=== PATIENT | male | born 1980 | race Caucasian/White ===

== ENCOUNTER 2019-12-18 22:38 | Emergency (ER) | payer OTHER ==
--- NOTE | 2019-12-18 23:06 | ERPHSYRPT ---
- History of Present Illness Time Seen by Provider: 12/18/19 23:06 Source: patient Exam Limitations: no limitations Patient Subjective Stated Complaint: pt has swelling to left jaw/side of face due to tooth abscess. Triage Nursing Assessment: pt has swelling to left jaw/side of face due to tooth abscess, which started last night at work. Swelling and pain has gotten worse today. 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 Physician History: The patient is a 39-year-old male with a past medical history significant for poor dentition in addition to cigarette smoking presents with a chief complaint of a toothache and left-sided facial swelling. He started to notice his lower left third molar was hurting yesterday and awoke this morning and noticed that the left side of his face appeared to be swollen, specifically adjacent to the left side of his mandible. As the day progressed the pain got worse and the swelling got worse to the point where he decided to have his bring him to the emergency department for further evaluation and management. He denies headache, changes in visual acuity, diplopia, difficulty swallowing, fever, chills, and tasting or feeling any purulent drainage coming from the gumline of the affected tooth. He states he has had periods of dental pain associated with the same tooth over the years but by the time he can schedule to be seen by dentist the pain goes away and he does not follow-up. He has not taken anything for pain prior to arrival to the emergency department and is unable to follow-up with a dentist at this time prompting him to come to the emergency department for further evaluation and management. The pain is described as a throbbing pain, nonradiating constant and is severe. Timing/Duration: yesterday Severity: severe Associated Symptoms: No nausea, No vomiting, No abdominal pain, No shortness of breath, No chest pain, No syncope Allergies/Adverse Reactions: codeine Adverse Reaction (Intermediate, Verified 12/18/19 22:57) Rash Hx Tetanus, Diphtheria Vaccination/Date Given: Yes Hx Influenza Vaccination/Date Given: No Hx Pneumococcal Vaccination/Date Given: No Immunizations Up to Date: Yes Travel Risk - International Travel Have you traveled outside of the country in past 3 weeks: No - Coronavirus Screening Are you exhibiting any of the following symptoms?: No Close contact with a COVID-19 positive Pt in past 14-21 Days: No - Review of Systems Constitutional: No Fever, No Chills Eyes: No Symptoms Ears, Nose, & Throat: Other (Toothache and facial swelling), No Throat Pain Respiratory: No No Symptoms, No Cough, No Cyanosis, No Dyspnea Cardiac: No Symptoms Abdominal/Gastrointestinal: No Symptoms Skin: No Symptoms Neurological: No Symptoms Psychological: No Symptoms Endocrine: No Symptoms - Past Medical History Pertinent Past Medical History: Yes ENT History: No Pertinent History Cardiac History: No Pertinent History Endocrine Medical History: No Pertinent History Musculoskeletal History: No Pertinent History GI Medical History: Other History: No Pertinent History Male Reproductive Disorders: No Pertinent History - Past Surgical History Past Surgical History: Yes Neuro Surgical History: No Pertinent History Cardiac: No Pertinent History Respiratory: No Pertinent History Gastrointestinal: Appendectomy Genitourinary: No Pertinent History Musculoskeletal: No Pertinent History Male Surgical History: No Pertinent History - Social History Smoking Status: Current every day smoker How long have you smoked: 20 yrs Exposure to second hand smoke: Yes Drug Use: none Patient Lives Alone: No - Nursing Vital Signs Nursing Vital Signs: Initial Vital Signs Temperature 98.1 F 12/18/19 22:49 Pulse Rate 87 12/18/19 22:49 Respiratory Rate 18 12/18/19 22:49 Blood Pressure 156/101 12/18/19 22:49 O2 Sat by Pulse Oximetry 99 12/18/19 22:49 Pain Scale Pain Intensity 8 - Physical Exam General Appearance: mild distress, other (Guarding the left side of his face with his left hand) Eye Exam: PERRL/EOMI, eyes nml inspection, No scleral icterus, No pale con junctivae, No photophobia, No EOM palsy/anisocoria Ears, Nose, Throat Exam: TMs normal, pharynx normal, other (#19 and 21 were severely decayed and there was tenderness with tapping of #19 with a tongue blade. There also was tenderness and fluctuance at the gumline of #19. No evidence [place] or [facility]. ), No TM abnormal (L), No pharyngeal erythema, No tonsillar exudate Neck Exam: normal inspection, non-tender, supple, No JVD Respiratory Exam: normal breath sounds, lungs clear, airway intact, No chest tenderness, No respiratory distress Cardiovascular Exam: regular rate/rhythm, normal heart sounds, normal peripheral pulses, capillary refill <2 sec, No murmur, No friction rub, No gallop Rectal Exam: deferred Extremity Exam: normal inspection Neurologic Exam: alert, oriented x 3, cooperative Skin Exam: normal color, warm, dry, No rash, No petechiae, No jaundice, No abrasion, No cyanosis SpO2 Interpretation: normal SpO2: 99 O2 Delivery: Room Air Procedures - Incision and Drainage Timeout: Performed Anesthesia: 1% Lidocaine cc's of anesthesia: 2 Blade Size: 11 Results: small amount pus Progress: #11 blade used to make a stab incision to the gumline with small amount of purulent drainage noted and drainage o periodontal abscess. - Course Nursing assessment & vital signs reviewed: Yes - CT Exams Soft Tissue Neck CT Interpretation: Other (Small periodontal abscess measures 3-4 mm in thickness . Soft tissue swelling superficial to the left mandibular body. ) Ordered Tests: Active Orders 24 hr Category Date Time Status IV Insertion STAT Care 12/18/19 23:18 Active NECK WITH CONTRAST [CT] Stat Exams 12/18/19 23:23 Taken BMP Stat Lab 12/18/19 23:39 Completed CBC W DIFF Stat Lab 12/18/19 23:39 Completed Medication Summary Discontinued Medications Generic Name Dose Route Start Last Admin Trade Name Freq PRN Reason Stop Dose Admin Hydrocodone Bitart/Acetaminophen 2 tab 12/18/19 23:19 12/19/19 00:01 [place] 5/325 Mg PO 12/18/19 23:20 2 tab STAT ONE Administration Hydrocodone Bitart/Acetaminophen Confirm 12/18/19 23:55 [place] 5/325 Mg Administered 12/18/19 23:56 Dose 2 tab .ROUTE .STK-MED ONE Clindamycin HCl 450 mg 12/18/19 23:19 12/19/19 00:00 Cleocin 150 Mg Capsule PO 12/18/19 23:20 450 mg STAT ONE Administration Clindamycin HCl Confirm 12/18/19 23:55 Cleocin 150 Mg Capsule Administered 12/18/19 23:56 Dose 450 mg .ROUTE .STK-MED ONE Ketorolac Tromethamine 15 mg 12/18/19 23:19 12/19/19 00:01 Toradol 30 Mg Injection IV 12/18/19 23:20 15 mg STAT ONE Administration Ketorolac Tromethamine Confirm 12/18/19 23:55 Toradol 30 Mg Injection Administered 12/18/19 23:56 Dose 30 mg .ROUTE .STK-MED ONE Lidocaine HCl 5 ml 12/19/19 00:43 Xylocaine 2% Jelly TOP 12/19/19 00:44 ONCE ONE Lidocaine HCl 5 ml 12/19/19 00:53 Xylocaine Viscous 2% 20 Ml Cup PO 12/19/19 00:54 STAT ONE Lidocaine HCl 5 ml 12/19/19 00:54 Xylocaine 1% Hcl 20 Ml Mdv IJ 12/19/19 00:55 STAT ONE Lidocaine HCl Confirm 12/19/19 00:54 Xylocaine Hcl Viscous * Administered 12/19/19 00:55 Dose 5 ml .ROUTE .STK-MED ONE Lidocaine HCl Confirm 12/19/19 00:57 Xylocaine 1% Hcl 20 Ml Mdv Administered 12/19/19 00:58 Dose 5 ml .ROUTE .STK-MED ONE Lidocaine HCl 5 ml 12/19/19 01:01 12/19/19 01:02 Xylocaine 1% Hcl 20 Ml Mdv IJ 12/19/19 01:02 5 ml STAT ONE Administration Morphine Sulfate 4 mg 12/18/19 23:19 12/19/19 00:02 Morphine Sulfate 4 Mg Inj IV 12/18/19 23:20 4 mg STAT ONE Administration Morphine Sulfate Confirm 12/18/19 23:55 Morphine Sulfate 4 Mg Inj Administered 12/18/19 23:56 Dose 4 mg .ROUTE .STK-MED ONE Ondansetron HCl 4 mg 12/18/19 23:19 12/19/19 00:01 Zofran 4 Mg/2 Ml Vial IV 12/18/19 23:20 4 mg STAT ONE Administration Ondansetron HCl Confirm 12/18/19 23:54 Zofran 4 Mg/2 Ml Vial Administered 12/18/19 23:55 Dose 4 mg .ROUTE .STK-MED ONE Lab/Rad Data: Laboratory Result Diagrams 12/18/19 23:39 12/18/19 23:39 Laboratory Results 12/18/19 12/18/19 Range/Units 23:39 23:39 WBC 10.8 H (4.0-10.5) K/mm3 RBC 4.22 (4.1-5.6) M/mm3 Hgb 11.9 L (12.5-18.0) gm/dl Hct 36.5 L (42-50) % MCV 86.5 (78-100) fl MCH 28.2 (26-32) pg MCHC 32.6 (32-36) g/dl RDW 14.0 (11.5-14.0) % Plt Count 244 (150-450) K/mm3 MPV 10.1 (7.5-11.0) fl Gran % 60.3 (36.0-66.0) % Eos # (Auto) 0.14 (0-0.5) Absolute Lymphs (auto) 3.17 (1.0-4.6) Absolute Monos (auto) 0.93 (0.0-1.3) Lymphocytes % 29.4 (24.0-44.0) % Monocytes % 8.6 (0.0-12.0) % Eosinophils % 1.3 (0.00-5.0) % Basophils % 0.4 (0.0-0.4) % Absolute Granulocytes 6.49 (1.4-6.9) Basophils # 0.04 (0-0.4) Sodium 140 (137-145) mmol/L Potassium 3.8 (3.5-5.1) mmol/L Chloride 107 (98-107) mmol/L Carbon Dioxide 26 (22-30) mmol/L Anion Gap 10.9 (5-15) MEQ/L BUN 13 (9-20) mg/dL Creatinine 0.74 (0.66-1.25) mg/dL Estimated GFR > 60.0 ML/MIN Glucose 111 H (74-106) mg/dL Calcium 9.0 (8.4-10.2) mg/dL - Progress Progress: improved Counseled pt/family regarding: lab results, diagnosis, need for follow-up, smoking cessation - Departure Departure Disposition: Home Clinical Impression: Periapical abscess with facial involvement, Elevated blood pressure reading, Cigarette smoker, Periodontal abscess Condition: Good Critical Care Time: No Referrals: DOCTOR,NO FAMILY [Primary Care Provider] - JOHN ORNELAS DDS [NON-STAFF PHY W/O PRIVILEGES] - Instructions: Tooth Abscess (DC), Tooth Decay, Adult (DC) Additional Instructions: Follow-up with Dr. Ornelas as soon as possible. Please take your medications as prescribed and if your symptoms become worse, specifically if you notice swelling under your jaw or swelling or redness that extends to your neck in addition to pain associated to the tongue and tongue elevation please return to the emergency department immediately. Try to refrain from smoking. Forms: Work/School Release Form Prescriptions: Hydrocodone/APAP 5-325 Tab^^^ [[place] 5-325 Tablet^^^] 1 - 2 tab PO Q6HPRN PRN 5 Days #20 tablet MDD 6 PRN Reason: Pain Clindamycin HCl 150 mg [Cleocin 150 mg Capsule] 3 cap PO TID 10 Days #90 capsule Naproxen 500 mg [Naprosyn 500 MG] 500 mg PO BID 10 Days #20 tablet Chlorhexidine Gluconate [Peridex] 15 ml MM BID 10 Days #1 bottle
[2019-12-18] MEDS ORDERED: NORCO 5/325 MG PO ONE (23:19)
[2019-12-18] MEDS ORDERED: MORPHINE SULFATE 4 MG INJ IV ONE (23:19)
[2019-12-18] MEDS ORDERED: CLEOCIN 150 MG CAPSULE PO ONE (23:19)
[2019-12-18] MEDS ORDERED: Zofran 4 MG/2 ML VIAL IV ONE (23:19)
[2019-12-18] MEDS ORDERED: TORAdol 30 mg Injection IV ONE (23:19)
[2019-12-18 23:45] LABS: Absolute Neutrophil Ct (ANC) 6.49 (1.4-6.9); BASOPHIL % 0.4 % (0.0-0.4); Basophil (Absolute #) 0.04 (0-0.4); Eosinophil % 1.3 % (0.00-5.0); Eosinophil (Absolute #) 0.14 (0-0.5); Hematocrit 36.5 % (42-50); Hemoglobin 11.9 gm/dl (12.5-18.0); Lymphocyte (Absolute #) 3.17 (1.0-4.6); Lymphocytes % 29.4 % (24.0-44.0); Mean Cell Volume 86.5 fl (78-100); Mean Corpuscular Hemoglobin 28.2 pg (26-32); Mean Corpuscular Hgb Concent. 32.6 g/dl (32-36); Mean Platelet Volume 10.1 fl (7.5-11.0); Monocyte (Absolute #) 0.93 (0.0-1.3); Monocytes % 8.6 % (0.0-12.0); Neutrophil % 60.3 % (36.0-66.0); Platelet Count 244 K/mm3 (150-450); Red Blood Count 4.22 M/mm3 (4.1-5.6); White Blood Count 10.8 K/mm3 (4.0-10.5)
[2019-12-18 23:53] LABS: ANION GAP 10.9 MEQ/L (5-15); BLOOD UREA NITROGEN 13 mg/dL (9-20); CHLORIDE 107 mmol/L (98-107); Carbon Dioxide 26 mmol/L (22-30); Creatinine 1 0.74 mg/dL (0.66-1.25); Glucose 111 mg/dL (74-106); Potassium 3.8 mmol/L (3.5-5.1); SODIUM 140 mmol/L (137-145)
[2019-12-18] MEDS ORDERED: Zofran 4 MG/2 ML VIAL ONE (23:54)
[2019-12-18] MEDS ORDERED: NORCO 5/325 MG ONE (23:55)
[2019-12-18] MEDS ORDERED: CLEOCIN 150 MG CAPSULE ONE (23:55)
[2019-12-18] MEDS ORDERED: TORAdol 30 mg Injection ONE (23:55)
[2019-12-18] MEDS ORDERED: MORPHINE SULFATE 4 MG INJ ONE (23:55)
[2019-12-19] MEDS ORDERED: Xylocaine 2% JELLY TOP ONE (00:43)
[2019-12-19] MEDS ORDERED: XYLOCAINE VISCOUS 2% 20 ML CUP PO ONE (00:53)
[2019-12-19] MEDS ORDERED: XYLOCAINE HCl Viscous ONE (00:54)
[2019-12-19] MEDS ORDERED: XYLOCAINE 1% HCL 20 ML MDV IJ ONE ×2 (00:54→01:01)
[2019-12-19] MEDS ORDERED: XYLOCAINE 1% HCL 20 ML MDV ONE (00:57)
[2019-12-19] MEDS ORDERED: XYLOCAINE HCl Viscous MM STA (01:37)
[2019-12-19 02:11] VITALS: BP 128/85; PULSE 78
[2019-12-19 02:33] VITALS: O2SAT 99
--- NOTE | 2019-12-19 08:00 | XRAY ---
Indication: Left face/jaw/neck edema. Dental caries with abscess. Multiple contiguous axial images obtained through the neck using 60 cc Isovue 370 contrast. Comparison: None There are few bilateral lower molar dental caries. Moderate left facial and left jaw soft tissue swelling presumed inflammatory/infectious. A tiny sliver of fluid superficial to the body of the left mandible 3-4 mm thick favoring periodontal abscess. Slightly prominent left cervical and submandibular lymph nodes presumed reactive. No acute fracture, suspicious bone lesions, or osseous destructive process. Major arteries and veins are normal in course and caliber. Supra and infraglottic airway widely patent. Normal epiglottis. Cervical spine intact. Images of the base of the brain and lung apices are unremarkable. Visualized paranasal sinuses and mastoid air cells are clear. Impression: Left face/jaw soft tissue swelling favoring cellulitis. Tiny fluid adjacent to body of the mandible most likely periodontal abscess with associated dental caries. Comment: Preliminary interpretation was made by [facility]. No cortical discrepancy.
== END 2019-12-19 02:08 | disposition home or self-care (01) ==
LOC: ED 22:38
DX: K04.7 Periapical abscess without sinus (principal); R03.0 Elevated blood-pressure reading, without diagnosis of hypertension; F17.210 Nicotine dependence, cigarettes, uncomplicated; K05.219 Aggressive periodontitis, localized, unspecified severity
CPT/HCPCS: 36000; 36415; 70491; 80048; 85025; 96374; 96375; 99284; J1885; J2270; J2405; A9270-GY